=== PATIENT | male | born 1955 | race Caucasian/White ===

== ENCOUNTER 2025-08-03 15:40 | Inpatient (IN) | payer MEDICARE, OTHER ==
[~2025-08-03] VITALS: Ht 172.7 cm; Wt 77.6 kg
[2025-08-03 16:11] LABS: PLATELET COUNT (AUTO) 180 K/uL (150-450); RED BLOOD CELL COUNT(AUTO) 4.43 MIL/uL (4.5-6.0); RED CELL DISTRIBUTION WIDTH 13.8 % (11.5-15.0); WHITE BLOOD COUNT (AUTO) 5.1 K/uL (4.3-11.0)
[2025-08-03 16:25] LABS: CALCIUM, SERUM 8.4 mg/dL (8.5-10.1); CREATININE 1.2 mg/dL (0.6-1.3); SODIUM SERUM 139 mmol/L (136-145); UREA NITROGEN, BLOOD 18 mg/dL (7-18)
[2025-08-03 16:32] LABS: ASPARTATE AMINOTRANSFERASE 27 U/L (15-37); TOTAL PROTEIN, SERUM 6.6 g/dL (6.4-8.2)
[2025-08-03] MEDS ORDERED: LORAZEPAM INJ 2 MG/ML VIAL ONE (17:10)
[2025-08-03] MEDS: LORAZEPAM INJ 2 MG/ML VIAL IV ONE (17:19)
[2025-08-03 17:59] LABS: APPEARANCE,URINE CLEAR (CLEAR); BLOOD, URINE Moderate Ery/uL (NEGATIVE); LEUKOCYTE ESTERASE ,URINE Small (NEGATIVE); UGLUCOSE Negative (NEGATIVE)
[2025-08-03 18:00] LABS: NITRITE, URINE NEGATIVE (NEGATIVE)
[2025-08-03 18:08] LABS: ADD URINE CULTURE YES; SQUAMOUS EPITHELIAL CELL,UR Few /HPF (None Seen)
[2025-08-03 18:10] LABS: AMPHETAMINE, URINE NEGATIVE (NEGATIVE); BARBITURATE, URINE NEGATIVE (NEGATIVE); BENZODIAZEPINE, URINE NEGATIVE (NEGATIVE); CANNABINOID, URINE NEGATIVE (NEGATIVE); COCCAINE, URINE NEGATIVE (NEGATIVE); OPIATE, URINE NEGATIVE (NEGATIVE)
[2025-08-03] MEDS ORDERED: VITA1TAB37 PO (18:14)
[2025-08-03] MEDS ORDERED: BUDE10.2 IH (18:14)
[2025-08-03] MEDS ORDERED: MINE133E RC (18:14)
[2025-08-03] MEDS ORDERED: BUDESONIDE IH (18:14)
[2025-08-03] MEDS ORDERED: CETI10TA14 PO (18:14)
[2025-08-03] MEDS ORDERED: ALBUTEROL IH (18:14)
[2025-08-03] MEDS ORDERED: MAGN400T52 PO (18:14)
[2025-08-03] MEDS ORDERED: DIVA-78 PO ×2 (18:14)
[2025-08-03] MEDS ORDERED: MIRT7.5T10 PO (18:14)
[2025-08-03] MEDS ORDERED: LORA-258 PO (18:14)
[2025-08-03] MEDS ORDERED: MAGN400O6 PO (18:14)
[2025-08-03] MEDS ORDERED: MELA1TAB2 PO (18:14)
[2025-08-03] MEDS ORDERED: BUDE10.26 IH (18:14)
[2025-08-03] MEDS ORDERED: BISA10SU11 RC (18:14)
[2025-08-03] MEDS ORDERED: ONDA-97 PO (18:14)
[2025-08-03] MEDS ORDERED: SERT50TA12 PO (18:14)
[2025-08-03] MEDS ORDERED: OLAN7.5T3 PO (18:14)
[2025-08-03 19:00] LABS: EOSINOPHILS % (MANUAL) 3 % (0-4); LYMPHOCYTES % (MANUAL) 14 % (16-48); MONOCYTES % (MANUAL) 10 % (0-11.0); NEUTROPHILS % (MANUAL) 73 (42-76); PLATELET ESTIMATE ADEQUATE
[2025-08-03 20:00] VITALS: BP 113/82; TEMP 97.5; O2SAT 97
[2025-08-03] MEDS: BLOOD SUGAR DIAGNOSTIC 1 EACH STRIP IN ONE (20:30)
[2025-08-03] MEDS ORDERED: MAGNESIUM HYDROXIDE 30 ML UDC PO PRN (20:30)
[2025-08-03] MEDS ORDERED: ZOLPIDEM TARTRATE 5 MG TABLET PO PRN (20:30)
[2025-08-03] MEDS ORDERED: QUETIAPINE FUMARATE 25 MG TABLET PO PRN ×2 (20:30)
[2025-08-03] MEDS ORDERED: ACETAMINOPHEN 325 MG TABLET PO PRN (20:30)
[2025-08-03] MEDS ORDERED: MAG HYDROX/AL HYDROX/SIMETH 30 ML UDC PO PRN (20:30)
[2025-08-03] MEDS: CEPHALEXIN MONOHYDRATE 500 MG CAPSULE PO SCH (21:21)
[2025-08-04 08:00] VITALS: BP 124/98; TEMP 97.8; O2SAT 98
[2025-08-04] MEDS: OLANZAPINE 2.5 MG TABLET PO SCH (14:00)
[2025-08-04] MEDS: DIVALPROEX SODIUM 125 MG TABLET.DR PO SCH (14:00)
[2025-08-04 16:00] VITALS: BP 146/93; TEMP 97.7; O2SAT 99
[2025-08-04 20:00] VITALS: BP 124/94; TEMP 98.3; O2SAT 97
[2025-08-04 20:43] LABS: CREATININE 1.7 mg/dL (0.6-1.3)
[2025-08-04 20:49] LABS: LDL 125 mg/dL (0-99)
[2025-08-04 21:05] LABS: ASPARTATE AMINOTRANSFERASE 33.0 U/L (15-37); CALCIUM, SERUM 9.3 mg/dL (8.5-10.1); CREATININE 1.7 mg/dL (0.6-1.3); SODIUM SERUM 139.0 mmol/L (136-145); TOTAL PROTEIN, SERUM 7.1 g/dL (6.4-8.2); UREA NITROGEN, BLOOD 22.0 mg/dL (7-18)
[2025-08-05 08:00] VITALS: BP 118/87; TEMP 97.7; O2SAT 97
[2025-08-05] MEDS: OLANZAPINE 10 MG VIAL IM ONE (10:28)
[2025-08-05] MEDS: diphenhydrAMINE HCL/ZINC ACET CREAM 28.3 GM TUBE TP PRN (11:20)
[2025-08-05 13:20] LABS: ASPARTATE AMINOTRANSFERASE 33.0 U/L (15-37); PHOSPHORUS 2.9 mg/dL (2.5-4.9); SODIUM SERUM 134.0 mmol/L (136-145); TOTAL PROTEIN, SERUM 6.8 g/dL (6.4-8.2)
[2025-08-05 13:57] LABS: CALCIUM, SERUM 9.0 mg/dL (8.5-10.1); CREATININE 1.6 mg/dL (0.6-1.3); UREA NITROGEN, BLOOD 30.0 mg/dL (7-18)
[2025-08-05 15:00] VITALS: O2SAT 85
[2025-08-05] MEDS: ALBUTEROL FS 2.5 MG/3 ML VIAL.NEB NEB PRN (15:00)
[2025-08-05 15:15] VITALS: O2SAT 94; O2SAT 98
[2025-08-05] MEDS: IPRATROPIUM NEB FS 0.5 MG/2.5 ML AMPUL.NEB NEB PRN (15:37)
[2025-08-05 16:20] VITALS: BP 120/68; TEMP 97.8; O2SAT 98
[2025-08-05 16:22] LABS: PLATELET COUNT (AUTO) 189 K/uL (150-450); RED BLOOD CELL COUNT(AUTO) 4.72 MIL/uL (4.5-6.0); RED CELL DISTRIBUTION WIDTH 14.3 % (11.5-15.0); WHITE BLOOD COUNT (AUTO) 6.0 K/uL (4.3-11.0)
[2025-08-05 17:10] LABS: BASOPHILS % (MANUAL) 0 % (0.0-2.0); EOSINOPHILS % (MANUAL) 3 % (0-4); LYMPHOCYTES % (MANUAL) 25 % (16-48); MONOCYTES % (MANUAL) 17 % (0-11.0); NEUTROPHILS % (MANUAL) 55 (42-76)
[2025-08-05 17:11] LABS: PLATELET ESTIMATE ADEQUATE
[2025-08-05] MEDS: ZIPRASIDONE MESYLATE 20 MG/VIAL VIAL IM ONE (17:11)
[2025-08-05 20:00] VITALS: BP 143/109; TEMP 98.3; O2SAT 97
[2025-08-05] MEDS: ALBUTEROL FS 2.5 MG/3 ML VIAL.NEB NEB SCH (20:35)
[2025-08-05] MEDS: DIVALPROEX SODIUM 250 MG TABLET.DR PO SCH (20:37)
[2025-08-05] MEDS: ATORVASTATIN 10 MG TABLET PO SCH (21:05)
[2025-08-06] VITALS (7 sets, daily range): BP systolic 130–131; BP diastolic 56–63; TEMP 97.8–97.9; O2SAT 95–99
[2025-08-06] MEDS: ZIPRASIDONE MESYLATE 20 MG/VIAL VIAL IM ONE (07:42)
[2025-08-06 10:41] LABS: PLATELET COUNT (AUTO) 209 K/uL (150-450); RED BLOOD CELL COUNT(AUTO) 4.85 MIL/uL (4.5-6.0); RED CELL DISTRIBUTION WIDTH 14.1 % (11.5-15.0); WHITE BLOOD COUNT (AUTO) 11.6 K/uL (4.3-11.0)
[2025-08-06 10:56] LABS: CREATINE KINASE, TOTAL 75.0 U/L (39-308)
[2025-08-06 10:58] LABS: ASPARTATE AMINOTRANSFERASE 24.0 U/L (15-37); CALCIUM, SERUM 9.2 mg/dL (8.5-10.1); CREATININE 1.6 mg/dL (0.6-1.3); PHOSPHORUS 3.6 mg/dL (2.5-4.9); SODIUM SERUM 140.0 mmol/L (136-145); TOTAL PROTEIN, SERUM 7.3 g/dL (6.4-8.2); UREA NITROGEN, BLOOD 30.0 mg/dL (7-18)
[2025-08-06] MEDS: ZOLPIDEM TARTRATE 5 MG TABLET PO PRN (22:13)
[2025-08-07] VITALS (9 sets, daily range): BP systolic 121–145; BP diastolic 85–89; TEMP 98.1–98.6; O2SAT 93–99
[2025-08-07] MEDS: ZIPRASIDONE MESYLATE 20 MG/VIAL VIAL IM STA (10:44)
[2025-08-08] VITALS (7 sets, daily range): BP systolic 126–132; BP diastolic 88–99; TEMP 98.4–98.6; O2SAT 95–98
[2025-08-08 07:07] LABS: PTH, INTACT 63 pg/mL (15-65)
[2025-08-08 20:19] LABS: PLATELET COUNT (AUTO) 220 K/uL (150-450); RED BLOOD CELL COUNT(AUTO) 4.59 MIL/uL (4.5-6.0); RED CELL DISTRIBUTION WIDTH 14.3 % (11.5-15.0); WHITE BLOOD COUNT (AUTO) 7.5 K/uL (4.3-11.0)
[2025-08-08 20:35] LABS: ASPARTATE AMINOTRANSFERASE 24.0 U/L (15-37); CALCIUM, SERUM 9.2 mg/dL (8.5-10.1); CREATININE 1.5 mg/dL (0.6-1.3); PHOSPHORUS 4.2 mg/dL (2.5-4.9); SODIUM SERUM 138.0 mmol/L (136-145); TOTAL PROTEIN, SERUM 7.2 g/dL (6.4-8.2); UREA NITROGEN, BLOOD 39.0 mg/dL (7-18)
[2025-08-08] MEDS: OLANZAPINE 2.5 MG TABLET PO SCH (21:09)
[2025-08-08 23:04] LABS: EOSINOPHILS % (MANUAL) 3 % (0-4); LYMPHOCYTES % (MANUAL) 22 % (16-48); MONOCYTES % (MANUAL) 12 % (0-11.0); NEUTROPHILS % (MANUAL) 63 (42-76); PLATELET ESTIMATE ADEQUATE
[2025-08-09] VITALS (10 sets, daily range): BP systolic 127–153; BP diastolic 74–108; TEMP 97.7–98; O2SAT 96–98
[2025-08-10] VITALS (8 sets, daily range): BP systolic 129–155; BP diastolic 83–100; TEMP 98.4–98.7; O2SAT 96–99
[2025-08-10 12:46] LABS: PLATELET COUNT (AUTO) 211 K/uL (150-450); RED BLOOD CELL COUNT(AUTO) 4.64 MIL/uL (4.5-6.0); RED CELL DISTRIBUTION WIDTH 13.7 % (11.5-15.0); WHITE BLOOD COUNT (AUTO) 5.3 K/uL (4.3-11.0)
[2025-08-10 13:24] LABS: ASPARTATE AMINOTRANSFERASE 23.0 U/L (15-37); CALCIUM, SERUM 8.8 mg/dL (8.5-10.1); CREATININE 1.4 mg/dL (0.6-1.3); SODIUM SERUM 139.0 mmol/L (136-145); TOTAL PROTEIN, SERUM 7.0 g/dL (6.4-8.2); UREA NITROGEN, BLOOD 33.0 mg/dL (7-18)
[2025-08-10 13:28] LABS: VALPROIC ACID 50.0 ug/mL (50-100)
[2025-08-10] MEDS ORDERED: QUETIAPINE FUMARATE 25 MG TABLET PO PRN (15:30)
[2025-08-11] VITALS (12 sets, daily range): BP systolic 125–151; BP diastolic 75–99; TEMP 97.7–98; O2SAT 95–99
[2025-08-11] MEDS: DIVALPROEX SODIUM 250 MG TABLET.DR PO SCH (13:28)
[2025-08-11] MEDS: OLANZAPINE 5 MG TABLET PO PRN (15:10)
[2025-08-12] VITALS (11 sets, daily range): BP systolic 122–149; BP diastolic 80–95; TEMP 97.8–97.9; O2SAT 95–99
[2025-08-12] MEDS: OLANZAPINE 5 MG TABLET PO SCH (21:08)
[2025-08-12] MEDS ORDERED: Z GUARD REMEDY 4 OZ OINT TP PRN (23:00)
[2025-08-13] VITALS (9 sets, daily range): BP systolic 113–125; BP diastolic 67–80; TEMP 97.8; O2SAT 94–100
[2025-08-13] MEDS: OLANZAPINE 5 MG TABLET PO SCH (08:31)
[2025-08-13] MEDS: Z GUARD REMEDY 4 OZ OINT TP SCH (08:31)
[2025-08-14 08:00] VITALS: BP 148/77; TEMP 97.8; O2SAT 97
[2025-08-14 08:14] VITALS: O2SAT 98
[2025-08-14 08:29] VITALS: O2SAT 98
[2025-08-14 16:01] VITALS: BP 147/98; TEMP 98.3; O2SAT 97
[2025-08-14 20:18] VITALS: BP 113/92; TEMP 98.1; O2SAT 96
[2025-08-15] VITALS (11 sets, daily range): BP systolic 96–131; BP diastolic 81–93; TEMP 97.8–98.1; O2SAT 94–100
[2025-08-15] MEDS: DIVALPROEX SODIUM 125 MG TABLET.DR PO SCH (21:23)
[2025-08-16 07:40] VITALS: O2SAT 98
[2025-08-16 07:47] VITALS: O2SAT 100
[2025-08-16 08:00] VITALS: BP 100/75; TEMP 97.8; O2SAT 94
[2025-08-16] MEDS: DIVALPROEX SODIUM 250 MG TABLET.DR PO SCH (09:16)
== END 2025-08-16 13:55 | DRG 885 ==
LOC: ER 15:51 → GPS 18:46
PROVIDERS: ADMIT Psychiatry & Neurology Psychiatry
DX: F39 Unspecified mood [affective] disorder (principal); N17.9 Acute kidney failure, unspecified; G93.41 Metabolic encephalopathy; E44.1 Mild protein-calorie malnutrition; N39.0 Urinary tract infection, site not specified; F01.52 Vascular dementia, unspecified severity, with psychotic disturbance; F01.53 Vascular dementia, unspecified severity, with mood disturbance; F29 Unspecified psychosis not due to a substance or known physiological condition; E78.5 Hyperlipidemia, unspecified; E88.09 Other disorders of plasma-protein metabolism, not elsewhere classified; Z20.822 Contact with and (suspected) exposure to COVID-19; D64.9 Anemia, unspecified; J44.9 Chronic obstructive pulmonary disease, unspecified; Z79.899 Other long term (current) drug therapy; F19.11 Other psychoactive substance abuse, in remission; B96.89 Other specified bacterial agents as the cause of diseases classified elsewhere; Z86.19 Personal history of other infectious and parasitic diseases; E83.89 Other disorders of mineral metabolism; Z68.26 Body mass index [BMI] 26.0-26.9, adult; F17.210 Nicotine dependence, cigarettes, uncomplicated; F25.0 Schizoaffective disorder, bipolar type
CPT/HCPCS: 36415; 71045-TC; 76770-TC; 80048-TC; 80053-TC; 80061-TC; 80076-TC; 80164-TC; 81001; 82550-TC; 82565-TC; 82962-TC; 83735-TC; 83970; 84100-TC; 84155; 84165; 85025-TC; 85027-TC; 87081-TC; 87086-TC; 92526; 92611; 94760-TC; 94762-TC; 94799-TC; J2060; J3486; J3490; J8540

== ENCOUNTER 2025-08-22 16:02 | Inpatient (IN) | payer MEDICARE, OTHER ==
[~2025-08-22] VITALS: Ht 180.3 cm; Wt 79.8 kg
[~2025-08-22 16:02] MED LIST: ALBUTEROL IH; BISA10SU11 RC; BUDE10.2 IH; BUDE10.26 IH; BUDESONIDE IH; CETI10TA14 PO; DIVA-78 PO; LORA-258 PO; MAGN400O6 PO; MAGN400T52 PO; MELA1TAB2 PO; MINE133E RC; MIRT7.5T10 PO; OLAN7.5T3 PO; ONDA-97 PO; SERT50TA12 PO; VITA1TAB37 PO
[2025-08-22 16:29] LABS: PLATELET COUNT (AUTO) 180 K/uL (150-450); RED BLOOD CELL COUNT(AUTO) 4.34 MIL/uL (4.5-6.0); RED CELL DISTRIBUTION WIDTH 14.6 % (11.5-15.0); WHITE BLOOD COUNT (AUTO) 5.8 K/uL (4.3-11.0)
[2025-08-22 16:36] LABS: CALCIUM, SERUM 8.8 mg/dL (8.5-10.1); CREATININE 1.8 mg/dL (0.6-1.3); SODIUM SERUM 140 mmol/L (136-145); UREA NITROGEN, BLOOD 30 mg/dL (7-18)
[2025-08-22 16:42] LABS: ASPARTATE AMINOTRANSFERASE 25 U/L (15-37); TOTAL PROTEIN, SERUM 7.0 g/dL (6.4-8.2)
[2025-08-22] MEDS ORDERED: ALBU2.5V11 NEB (16:42)
[2025-08-22] MEDS ORDERED: MAG30ORA PO (16:42)
[2025-08-22] MEDS ORDERED: IPRA0.2S49 IH (16:42)
[2025-08-22] MEDS ORDERED: DIVA125T32 PO (16:42)
[2025-08-22] MEDS ORDERED: ZOLP5TAB8 PO (16:42)
[2025-08-22] MEDS ORDERED: OLAN5TAB3 PO (16:42)
[2025-08-22] MEDS ORDERED: DIPH30CR2 TP (16:42)
[2025-08-22] MEDS ORDERED: ACET325T53 PO (16:42)
[2025-08-22] MEDS ORDERED: MAG HYDROX/AL HYDROX/SIMETH 30 ML UDC PO PRN ×3 (18:00→18:30)
[2025-08-22] MEDS ORDERED: MAGNESIUM HYDROXIDE 30 ML UDC PO PRN ×3 (18:00→18:30)
[2025-08-22] MEDS ORDERED: OLANZAPINE 10 MG VIAL IM ONE (18:06)
[2025-08-22] MEDS: OLANZAPINE 10 MG VIAL IM ONE (18:09)
[2025-08-22] MEDS ORDERED: ACETAMINOPHEN 325 MG TABLET PO PRN ×2 (18:30)
[2025-08-22 18:53] VITALS: BP 160/99; TEMP 98.7; O2SAT 100
[2025-08-22] MEDS: BLOOD SUGAR DIAGNOSTIC 1 EACH STRIP IN ONE (19:20)
[2025-08-22 21:45] VITALS: BP 142/89; TEMP 98; O2SAT 98
[2025-08-22 21:48] VITALS: O2SAT 96
[2025-08-22 22:03] VITALS: O2SAT 98
[2025-08-22] MEDS: ALBUTEROL FS 2.5 MG/3 ML VIAL.NEB NEB SCH (22:04)
[2025-08-22] MEDS: IPRATROPIUM NEB FS 0.5 MG/2.5 ML AMPUL.NEB IH PRN (22:04)
[2025-08-22] MEDS: ZOLPIDEM TARTRATE 5 MG TABLET PO PRN (22:43)
[2025-08-23 08:00] VITALS: BP 131/121; TEMP 97.7; O2SAT 96
[2025-08-23 08:06] VITALS: O2SAT 95
[2025-08-23 08:18] VITALS: O2SAT 98
[2025-08-23] MEDS: QUETIAPINE FUMARATE 25 MG TABLET PO PRN (11:46)
[2025-08-23 13:09] VITALS: O2SAT 96
[2025-08-23 13:15] VITALS: O2SAT 98
[2025-08-23 16:45] VITALS: BP 115/87; TEMP 98.4; O2SAT 98
[2025-08-23] MEDS ORDERED: QUETIAPINE FUMARATE 25 MG TABLET PO PRN (19:00)
[2025-08-23 20:34] LABS: APPEARANCE,URINE CLEAR (CLEAR); BLOOD, URINE NEGATIVE Ery/uL (NEGATIVE); LEUKOCYTE ESTERASE ,URINE NEGATIVE (NEGATIVE); NITRITE, URINE NEGATIVE (NEGATIVE); UGLUCOSE NEGATIVE (NEGATIVE)
[2025-08-23 20:38] LABS: AMPHETAMINE, URINE NEGATIVE (NEGATIVE); BARBITURATE, URINE NEGATIVE (NEGATIVE); CANNABINOID, URINE NEGATIVE (NEGATIVE); COCCAINE, URINE NEGATIVE (NEGATIVE); OPIATE, URINE NEGATIVE (NEGATIVE)
[2025-08-23 20:38] LABS: CREATININE, URINE 228.2 MG/DL (30.0-125.0); URINE SODIUM, RANDOM 6.0 mmol/l (40-220); URINE TOTAL PROTEIN 21.3 mg/dL (0-11.9)
[2025-08-23 20:39] LABS: BENZODIAZEPINE, URINE POSITIVE (NEGATIVE)
[2025-08-23 20:42] LABS: ASPARTATE AMINOTRANSFERASE 29.0 U/L (15-37); CALCIUM, SERUM 9.2 mg/dL (8.5-10.1); CREATININE 1.5 mg/dL (0.6-1.3); SODIUM SERUM 140.0 mmol/L (136-145); TOTAL PROTEIN, SERUM 7.3 g/dL (6.4-8.2); UREA NITROGEN, BLOOD 33.0 mg/dL (7-18)
[2025-08-23 20:45] LABS: LDL 106 mg/dL (0-99)
[2025-08-23] MEDS: OLANZAPINE 5 MG TABLET PO SCH (20:46)
[2025-08-23 21:05] LABS: EOSINOPHIL,URINE None Seen
[2025-08-23] MEDS: DIVALPROEX SODIUM 125 MG TABLET.DR PO SCH (21:36)
[2025-08-24] VITALS (9 sets, daily range): BP systolic 100–149; BP diastolic 77–98; TEMP 98–98.6; O2SAT 94–100
[2025-08-24] MEDS: ZOLPIDEM TARTRATE 5 MG TABLET PO PRN (01:27)
[2025-08-24] MEDS: ACETAMINOPHEN 325 MG TABLET PO PRN (01:36)
[2025-08-24] MEDS: DIVALPROEX SODIUM 500 MG TABLET.DR PO SCH (09:31)
[2025-08-25] VITALS (10 sets, daily range): BP systolic 134–158; BP diastolic 81–106; TEMP 97.8–98; O2SAT 93–100
[2025-08-26] VITALS (8 sets, daily range): BP systolic 128–168; BP diastolic 62–99; TEMP 97.9–98.3; O2SAT 95–99
[2025-08-26] MEDS: Z GUARD REMEDY 4 OZ OINT TP SCH (08:52)
[2025-08-27] VITALS (13 sets, daily range): BP systolic 121–169; BP diastolic 90–100; TEMP 97.5–98.2; O2SAT 95–98
[2025-08-28 01:57] VITALS: O2SAT 97
[2025-08-28 02:02] VITALS: O2SAT 98
[2025-08-28] MEDS: NIFEdipine XL (30MG) 30 MG TAB PO SCH (09:00)
[2025-08-28 18:20] VITALS: O2SAT 92
[2025-08-28 18:35] VITALS: O2SAT 99
[2025-08-29] VITALS (8 sets, daily range): O2SAT 95–98
[2025-08-29] MEDS: Z GUARD REMEDY 4 OZ OINT TP PRN (06:09)
[2025-08-29] MEDS: DIVALPROEX SODIUM 500 MG TABLET.DR PO SCH (17:01)
[2025-08-30] VITALS (9 sets, daily range): BP systolic 118–165; BP diastolic 95–100; TEMP 98.3–98.6; O2SAT 97–99
[2025-08-31] VITALS (9 sets, daily range): BP systolic 98–150; BP diastolic 74–86; TEMP 97.9–98.7; O2SAT 95–99
[2025-08-31] MEDS: DIVALPROEX SODIUM 125 MG CAP.SPRINK PO SCH ×2 (16:34→21:09)
[2025-09-01] VITALS (8 sets, daily range): BP systolic 136; BP diastolic 64; TEMP 97.8; O2SAT 96–98
[2025-09-01] MEDS: OLANZAPINE 5 MG TABLET PO SCH ×2 (13:27→21:05)
[2025-09-02 02:01] VITALS: O2SAT 96
[2025-09-02 02:12] VITALS: O2SAT 99
[2025-09-02 06:58] VITALS: O2SAT 98
[2025-09-02 08:00] VITALS: BP 112/82; TEMP 97.5; O2SAT 96
[2025-09-02] MEDS ORDERED: PERMETHRIN 5% CRM 60 GM TUBE TP ONE (14:30)
[2025-09-02] MEDS: PERMETHRIN 5% CRM 60 GM TUBE TP ONE (19:55)
[2025-09-02 21:33] VITALS: O2SAT 98
[2025-09-02 21:43] VITALS: O2SAT 99
[2025-09-03] VITALS (7 sets, daily range): BP systolic 104–144; BP diastolic 66–94; TEMP 98.7; O2SAT 96–99
[2025-09-04] VITALS (8 sets, daily range): BP systolic 129–145; BP diastolic 88–107; TEMP 98–98.2; O2SAT 96–99
[2025-09-05] VITALS (9 sets, daily range): BP systolic 121; BP diastolic 90; O2SAT 96–99
[2025-09-06] VITALS (13 sets, daily range): BP systolic 113–132; BP diastolic 74–90; TEMP 97.7–98; O2SAT 96–98
[2025-09-06] MEDS: OLANZAPINE 10 MG TABLET PO SCH (13:08)
[2025-09-07] VITALS (13 sets, daily range): BP systolic 118–139; BP diastolic 91–100; TEMP 98.1–98.7; O2SAT 95–99
[2025-09-08 01:43] VITALS: O2SAT 95
[2025-09-08 01:58] VITALS: O2SAT 97
[2025-09-08 06:55] VITALS: O2SAT 94
[2025-09-08 07:05] VITALS: O2SAT 96; O2SAT 98
[2025-09-08 08:00] VITALS: BP 121/78; TEMP 98.1; O2SAT 96
[2025-09-08 08:04] VITALS: BP 121/78
== END 2025-09-08 15:04 | DRG 885 ==
LOC: ER 16:14 → GPS 18:17 → UNDODISIN 09-05 13:30
PROVIDERS: ADMIT Psychiatry & Neurology Psychiatry; ATTEND Internal Medicine
DX: F39 Unspecified mood [affective] disorder (principal); N18.9 Chronic kidney disease, unspecified; N17.9 Acute kidney failure, unspecified; G93.41 Metabolic encephalopathy; E44.1 Mild protein-calorie malnutrition; F01.52 Vascular dementia, unspecified severity, with psychotic disturbance; F01.53 Vascular dementia, unspecified severity, with mood disturbance; F25.9 Schizoaffective disorder, unspecified; F31.9 Bipolar disorder, unspecified; F29 Unspecified psychosis not due to a substance or known physiological condition; E78.5 Hyperlipidemia, unspecified; D64.9 Anemia, unspecified; J44.9 Chronic obstructive pulmonary disease, unspecified; F17.210 Nicotine dependence, cigarettes, uncomplicated; E88.09 Other disorders of plasma-protein metabolism, not elsewhere classified; Z68.24 Body mass index [BMI] 24.0-24.9, adult; Z86.19 Personal history of other infectious and parasitic diseases; E86.9 Volume depletion, unspecified; E83.89 Other disorders of mineral metabolism; F31.89 Other bipolar disorder
CPT/HCPCS: 36415; 71045-TC; 80048-TC; 80053-TC; 80061-TC; 80076-TC; 80164-TC; 82570-TC; 84300-TC; 85025-TC; 87081-TC; 94760-TC; 94762-TC; 94799-TC; 97110-TC; 97116-TC; 97530-TC; A6253; J3490